=== PATIENT | male | born 1940 | race Caucasian/White ===

== ENCOUNTER → 2017-02-27 12:27 | Outpatient (CLI) | payer OTHER ==
[2015-05-14 08:36] VITALS: BMI 23.7
[~2017-02-27 12:27] MED LIST: COUMADIN5 MG PO; SYNTHROID50 MCG PO; ZYLOPRIM300 MG PO
== END | disposition home or self-care (01) ==
LOC: D.RAD 12:27
DX: R13.19 Other dysphagia (principal)

== ENCOUNTER 2018-01-01 09:07 | Emergency (ER) | payer OTHER ==
[~2018-01-01] VITALS: Ht 180.3 cm; Wt 77.3 kg
[2018-01-01 09:10] VITALS: Ht 180.3 cm; Wt 77.3 kg
[2018-01-01] MEDS ORDERED: COUMADIN3 MG PO (09:12)
[2018-01-01] MEDS ORDERED: COREG 3.1253.125 MG PO (09:13)
[2018-01-01 09:46] LABS: BASOPHILS 0.3 % (0-2); HEMOGLOBIN 15.6 g/dL (13.5-17.5); IMMATURE GRANULOCYTES 0.3 % (0-5); MCH 29.4 pg (26.0-34.0); MCHC 33.9 g/dL (31.0-37.0); MCV 86.8 fL (80.0-100.0); MEAN PLATELET VOLUME 12.7 fL (7.4-10.4); MONOCYTES 8.3 % (2-11); NEUTROPHILS 58.1 % (40-80); PLATELET COUNT 137 10x3/uL (130-400); RDW 15.4 % (11.5-14.5); WBC 6.5 10x3/uL (4.8-10.8)
[2018-01-01 10:02] LABS: ALBUMIN 3.5 g/dL (3.4-5.0); ALKALINE PHOSPHATASE 75 U/L (46-116); ALT (SGPT) 35 U/L (10-68); CALC OSMOLALITY 281 mosm/kg (275-300); CALCIUM 8.8 mg/dL (8.5-10.1); CARBON DIOXIDE 28.4 mmol/L (21.0-32.0); CHLORIDE - SERUM 106 mmol/L (98-107); CREATININE - SERUM 1.4 mg/dL (0.6-1.3); GLUCOSE 104 mg/dL (74-106); POTASSIUM - SERUM 4.2 mmol/L (3.5-5.1); PROTEIN - SERUM 7.2 g/dL (6.4-8.2); SODIUM 140 mmol/L (136-145); UREA NITROGEN 21 mg/dL (7-18); eGFR NON AFRICAN AMERICAN 52 mL/min (90-120)
[2018-01-01 10:15] LABS: CKMB 4.5 U/L (0.0-3.6); PRO BNP 1757 pg/mL (0-450); THYROID STIMULATING HORMONE 3.45 uIU/mL (0.36-3.74); TROPONIN-I < 0.017 ng/mL (0.000-0.060)
[2018-01-01 12:17] VITALS: BP 158/94
== END 2018-01-01 12:19 | disposition home or self-care (01) ==
LOC: D.ER 09:07
PROVIDERS: Family Medicine
DX: R42 Dizziness and giddiness (principal)

== ENCOUNTER → 2018-09-17 14:12 | Outpatient (CLI) | payer OTHER, MEDICARE ==
[2018-01-01 09:10] VITALS: BMI 23.7
[~2018-09-17 14:12] MED LIST changes: +COREG 3.1253.125 MG PO; +COUMADIN3 MG PO
== END | disposition home or self-care (01) ==
LOC: D.US 14:12
PROVIDERS: ATTEND Internal Medicine Cardiovascular Disease
DX: G45.9 Transient cerebral ischemic attack, unspecified (principal); H54.7 Unspecified visual loss

== ENCOUNTER → 2019-07-30 13:40 | Outpatient (CLI) | payer OTHER, MEDICARE ==
[2018-01-01 09:10] VITALS: BMI 23.7
== END | disposition home or self-care (01) ==
LOC: D.HCCECHO 13:40
PROVIDERS: ATTEND Internal Medicine Cardiovascular Disease
DX: I25.10 Atherosclerotic heart disease of native coronary artery without angina pectoris (principal)

== ENCOUNTER → 2020-09-15 07:57 | Outpatient (CLI) | payer OTHER ==
[2018-01-01 09:10] VITALS: BMI 23.7
--- NOTE | ~2020-09-15 | ST ---
PATIENT:VICKI HAN MEDICAL RECORD: [id number] SEX: M LOCATION:[facility] ORDER #: ADMISSION DATE: 09/15/20 AGE OF PATIENT: 80 REFERRING PHYSICIAN: INTERPRETING PHYSICIAN: REYES CRUZ MD DATE OF SERVICE: 09/15/2020 NUCLEAR STRESS TEST Gated: Gated is normal with normal wall motion, normal wall thickening, calculated EF 57%. SPECT imaging: SPECT imaging was performed. FINDINGS: Short axis view: Short axis views shows reversible defect extending from the inferior base down to the mid inferior wall. This is confirmed in the horizontal axis with reversible defect from the inferior base down to the mid inferior wall. Vertical axis: Vertical axis shows good uptake along the lateral wall and septum. FINAL IMPRESSION: 1. Normal gated. Normal wall motion, EF 57%. 2. Abnormal SPECT imaging with a reversible defect along the inferior base extending from the inferior wall. Seen in 2 views. This gentleman with previous history of coronary artery disease. The scan is worrisome for progression of [place] disease. Consider angiography to further delineate anatomy. TRANSINT:[id number] Voice Confirmation ID: [id number] DOCUMENT ID: [id number] REYES CRUZ MD CC: [id number] DICTATION DATE: 09/16/20 0803 SHAKER PLATE OPERATOR: 09/17/20 0051 DEP CLI 09/15/20 [address] [place] [address]
== END | disposition home or self-care (01) ==
LOC: D.HCCARDIO 09-11 08:30
PROVIDERS: ATTEND Internal Medicine Interventional Cardiology
DX: I25.10 Atherosclerotic heart disease of native coronary artery without angina pectoris (principal)

== ENCOUNTER 2020-12-03 06:54 | Day surgery (SDC) | payer OTHER ==
[~2020-12-03] VITALS: Ht 180.3 cm; Wt 81.5 kg
--- NOTE | ~2020-12-03 | HEMODYNAMI ---
PATIENT:VICKI HAN MEDICAL RECORD: [id number] : 40 LOCATION:[facility] ADMISSION DATE: 12/03/20 Generatedon:19:31 Patient name: VICKI HNA Patient #: [id number] SSN: : 1 07/24/1939 Date of study: 12/03/2020 Page: Of Hemodynamic Procedure Report Patient Data Patient Demographics Procedure consent was obtained First Name: VICKI Gender: Male Last Name: GUILLE : 1940 [facility] Initial: JETT Age: 80 year(s) Patient #: [id number] Race: Additional ID: [id number] Contact details Address: [address] [place] [address] State: [place] City: [place] Zip code: [address] Past Medical History Allergies: No known allergies Admission Admission Data Admission Date: 12/03/2020 Admission Time: 6:54 Arrival Date: 12/03/2020 Arrival Time: 0:00 Admit Source: Other Insurance Payor: Private health insurance [facility] #: [id number] Lab Results Lab Result Date: 12/03/2020 Lab Result Time: 0:00 Biochemistry Name Units Result Min Max BUN mg/dl 28 --(----)-* 7 18 Creatinine mg/dl 1.4 --(----)*- 0.6 1.3 CBC Name Units Result Min Max Hematocrit % 45 --(*---)-- 42 54 Hemoglobin g/dl 14.9 --(-*--)-- 13.5 17.5 Procedure Procedure Types Cath Procedure Diagnostic Procedure C LH w/Coronaries Sedation Charges Moderate Sedation 10-24 minutes Procedure Description Procedure Date Procedure Date: 12/03/2020 Procedure Start Time: 9:03 Procedure End Time: 9:28 Procedure Staff Name Function Ryan Loja MD Performing Physician Rui Dougherty RN Nurse Prateek Villarreal RN Nurse Keira Horan RT Monitor Jeannette Lopez RT Scrub Procedure Data Cath Procedure Fluoroscopy Diagnostic fluoroscopy Total fluoroscopy Time: 4.8 time: 4.8 min min Diagnostic fluoroscopy Total fluoroscopy dose: 832 dose: 832 mGy mGy Contrast Material Contrast Material Type Amount (ml) Isovue 300 109 Entry Location Entry Primary Successful Side Size Upsize Upsize Entry Closure Savage ccessful Closure Location (Fr) 1 (Fr) 2 (Fr) Remarks Device Remarks Radial Right 6 Fr Mechanical artery Short Compression Femoral Right 5 Fr Exoseal artery Estimated blood loss: 5 ml Diagnostic catheters Device Type Used For End Catheter Placement DIAGNOSTIC [place] 110cm 5 Multi-vessel Fr catheter ([id number]) Angiography DIAGNOSTIC AL1 5Fr Right Coronary catheter ([id number]) Angiography Procedure Complications No complications Procedure Medications Medication Administration Route Dosage 0.9% NaCl I.V. 100 ml/hr Oxygen etCO2 Nasal cannula 2 l/min Heparin Flush Bag added to field 2 bags (1000units/500ml NS) Lidocaine 2% added to field 20 Radial Cocktail added to field 1 syringe (Verapamil 2mg/Nitro 400mcg/Heparin 1500units) Versed I.V. 1 mg Fentanyl I.V. 50 mcg Versed I.V. 0.5 mg Hemodynamics Rest HGB: 14.9 (g/dl) Heart Rate: 56 (bpm) Pressure Samples Time Site Value (mmHg) Purpose Heart Use Rate(bpm) 9:22 LV 149/11,18 Snapshot 76 Gradients Valve Time Site Site Mean SEP/DFP Peak To Heart Use 1 2 (mmHg) (sec/min) Peak Rate (mmHg) (bpm) Aortic 9:23 LV AO 59 Snapshots Pre Cath Intra NCS Post Cath Vital Signs Time Heart Resp SPO2 etCO2 NIBP (mmHg) Rhythm Pain Sedation Rate (ipm) (%) (mmHg) Status Level (bpm) 8:56:39 65 11 100 0.7 183/96(157) NSR 0 (11) 10(A) , No pain 9:01:04 55 12 94 0.7 165/83(142) SB 0 (11) 10(A) , No pain 9:05:28 54 12 95 0 173/89(153) SB 0 (11) 9(A) , No pain 9:09:46 52 12 98 0.7 133/73(93) SB 0 (11) 9(A) , No pain 9:13:56 51 12 96 1.5 134/74(106) SB 0 (11) 9(A) , No pain 9:18:14 80 12 97 1.5 136/71(115) NSR 0 (11) 9(A) , No pain 9:22:32 77 13 94 0.7 141/75(112) NSR 0 (11) 9(A) , No pain 9:26:52 73 12 98 1.5 145/75(111) NSR 0 (11) 10(A) , No pain Medications Time Medication Route Dose Verified Delivered Reason Notes Ef fectiveness by by 8:42:34 0.9% NaCl I.V. 100 Ryan Prateek used for ml/hr Freedom Villarreal manufacturing engineering intern 8:42:42 Oxygen etCO2 2 l/min Ryan Prateek used for Nasal Freedom Villarreal manufacturing engineering intern cannula 8:42:49 Heparin Flush added 2 bags Ryan Prateek used for Bag to Freedom Villarreal manufacturing engineering intern (1000units/500ml field NS) 8:43:05 Lidocaine 2% added 20ml Ryan Prateek for local to vial Freedom Villarreal RN anesthetic field 8:54:32 Radial Cocktail added 1 Ryan Prateek used for (Verapamil to syringe Freedom Villarreal manufacturing engineering intern 2mg/Nitro field 400mcg/Heparin 1500units) 9:01:13 Versed I.V. 1 mg Ryan Prateek for Freedom Villarreal RN sedation 9:01:19 Fentanyl I.V. 50 mcg Ryan Prateek for Freedom Villarreal RN sedation 9:09:34 Versed I.V. 0.5 mg Ryan Prateek for Freedom Villarreal RN sedation Procedure Log Time Note 8:08:59 Informed consent obtained and on chart 8::08 Diagnostic Cath Status : Elective 8::28 Admit Source: Other 8::31 ACC Patient presents with Stable Angina CCS Anginal Class 2--Slight limitation of ordinary activity. 8:17:24 Procedure Status Elective Heart Cath (OP). 8:17:26 Time tracking: Regular hours (M-F 7:00 - 5:00) 8:17:31 Plan of Care:Hemodynamics will remain stable., Cardiac rhythm will remain stable., Comfort level will be maintained., Respiratory function will remain adequate., Patient/ family verbilizes understanding of procedure., Procedure tolerated without complication., Recovers from procedure without complications.. 8:17:44 Arrival Date: 12/03/2020 12:00:00 AM 8:17:48 Insurance Payor : Private health insurance 8:19:27 H&P Date Dictated: 12/03/2020 Within 30 days and on chart.. 8:21:53 Prateek Villarreal RN sent for patient. Start room use. 8:36:04 Lab Result : Hemoglobin 14.9 g/dl 8:36:04 Lab Result : Hematocrit 45 % 8:36:17 Procedure delayed due to: WAITING ON LAB PT/INR 8:42:21 Lab Result : Creatinine 1.4 mg/dl 8:42:21 Lab Result : BUN 28 mg/dl 8:42:34 0.9% NaCl 100 ml/hr I.V. was administered by Prateek Villarreal RN; used for procedure; Verbal order read back and verified. 8:42:42 Oxygen 2 l/min etCO2 Nasal cannula was administered by Prateek Villarreal RN; used for procedure; Verbal order read back and verified. 8:42:49 Heparin Flush Bag (1000units/500ml NS) 2 bags added to field was administered by Prateek Villarreal RN; used for procedure; Verbal order read back and verified. 8:43:05 Lidocaine 2% 20ml vial added to field was administered by Prateek Villarreal RN; for local anesthetic; Verbal order read back and verified. 8:46:23 Patient received from Pre/Post Procedure Room to CCL 1 Alert and oriented. Tansferred to table in Supine position. 8:46:24 Warm blankets applied, and jorge hugger turned on for patient comfort. 8:46:24 Correct patient and procedure confirmed by team. 8:46:25 ECG and BP/O2 sat monitors applied to patient. 8:54:18 Vital chart was started 8:54:32 Radial Cocktail (Verapamil 2mg/Nitro 400mcg/Heparin 1500units) 1 syringe added to field was administered by Prateek Villarreal RN; used for procedure; Verbal order read back and verified. 8:57:32 Baseline sample Acquired. 8:58:02 Rhythm: sinus rhythm 8:58:05 Full Disclosure recording started 8:58:10 Pre-procedure instructions explained to patient. 8:58:10 Pre-op teaching completed and patient verbalized understanding. 8:58:14 Family in patients room. 8:58:16 Patient NPO since Midnight. 8:58:18 Is the patient allergic to Iodine/contrast media? No. 8:58:19 Was the patient premedicated? Yes 8:58:48 Is patient on blood thinner?Yes 8:59:51 PATIENT STATES LAST DOSE OF COUMADIN ON 11/28/20 8:59:55 Patient diabetic? No. 8:59:57 Previous problem with sedation/anesthesia? No ? 9:00:00 Snore? Yes 9:00:01 Sleep apnea? No 9:00:02 Deviated septum? No 9:00:02 Opens mouth fully? Yes 9:00:03 Sticks out tongue? Yes 9:00:07 Airway obstruction? No ? 9:00:12 Dentures? Yes OUT 9:00:18 Pre procedure: right dorsailis pedis pulse 1+ Palpable, but thready & weak; easily obliterated 9:00:20 Pre procedure: left dorsailis pedis pulse 1+ Palpable, but thready & weak; easily obliterated 9:00:22 Patient pain scale 0/10 ?. 9:00:24 Modified Enrico's test Radial < 7 seconds 9:00:30 IV patent on arrival in left forearm with 0.9% NaCl at O. 9:00:34 Lab results completed and on chart. 9:00:44 Right Radial & Right Groin area was prepped with chlora-prep and draped in sterile fashion 9:00:45 Alarms reviewed by R. N. 9:00:45 Sharps counted by scrub and verified by R.N. 9:00:47 Physician arrived 9:00:47 --------ALL STOP TIME OUT------ 9:00:48 Final Timeout: patient, procedure, and site verified with staff and physician. All members of the team are in agreement. 9:00:51 Right Radial & Right Groin site verified by team. 9:00:54 Fire Safety Assessment: A--An alcohol-based skin anteseptic being used preoperatively., C--Open oxygen or nitrous oxide is being used., D--An ESU, laser, or fiber-optic light is being used. 9:00:58 Physical assessment completed. ASA score P 2 - A patient with mild systemic disease as per Ryan Loja MD. 9:01:04 3a) 45-59 Moderately reduced kidney function. 9:01:09 Maximum allowable contrast dose (3.7 X eGFR X 0.75)144 ml. 9:01:13 Versed 1 mg I.V. was administered by Prateek Villarreal RN; for sedation; Verbal order read back and verified. 9:01:17 Sedation plan: IV Moderate Sedation Medication:Versed, Fentanyl 9:01:19 Fentanyl 50 mcg I.V. was administered by Prateek Villarreal RN; for sedation; Verbal order read back and verified. 9:03:07 Use device set Radial Dx or PCI 9:03:09 ACIST Syringe (90815) opened to sterile field. 9:03:10 Medline Cath Pack ([id number]) opened to sterile field. 9:03:10 Bag Decanter (2002S) opened to sterile field. 9:03:10 ACIST Hand Control (46272) opened to sterile field. 9:03:11 ACIST Manifold (17529) opened to sterile field. 9:03:11 Tegaderm 4 x 4 (1626W) opened to sterile field. 9:03:12 MBrace Wrist Support ([id number]) opened to sterile field. 9:03:16 NEEDLE Cook 21G 4cm Radial (F19744) opened to sterile field. 9:03:17 SHEATH 6FR RAIN (8066582) opened to sterile field. 9:03:18 EMERALD Guide Wire (195-094) opened to sterile field. 9:03:29 Procedure started. 9:03:34 Local anesthetic to right radial artery with Lidocaine 2% by Ryan Loja MD.INITIAL ACCESS ONLY 9:05:37 Zero performed for pressure channel P1 9:06:35 A 6 Fr Short sheath was inserted into the Right Radial artery 9:07:43 A DIAGNOSTIC [place] 110cm 5 Fr catheter (903833) was advanced over the wire and used for Multi-vessel Angiography. 9:09:26 GLIDE WIRE ANGLE 260cm (ZL0262) opened to sterile field. 9:09:34 Versed 0.5 mg I.V. was administered by Prateek Villarreal RN; for sedation; Verbal order read back and verified. 9:10:46 unable to gain access through radial; preparing for femoral access 9:11:17 Local anesthetic to right femoral artery with Lidocaine 2% by Ryan Loja MD.ADDITIONAL ACCESS 9:11:53 SHEATH 5FR [place] (GYA969) opened to sterile field. 9:11:59 DIAGNOSTIC Multipack 5Fr catheter set ([id number]) opened to sterile field. 9:12:43 A 5 Fr sheath was inserted into the Right Femoral artery 9:12:54 5 Fr jl 4 guide catheter was inserted over the wire 9:13:41 LCA angiography performed. 9:13:44 Injector settings: Ml/sec: 3, Volume: 6, 9:15:53 Catheter removed. 9:16:36 5 Fr 3drc guide catheter was inserted over the wire 9:18:28 RCA angiography performed. 9:18:32 Injector settings: Ml/sec: 3, Volume: 6, 9:19:40 A DIAGNOSTIC AL1 5Fr catheter ([id number]) was advanced over the wire and used for Right Coronary Angiography. 9:20:02 RCA angiography performed. 9:20:05 Injector settings: Ml/sec: 3, Volume: +6, 9:21:14 Catheter removed. 9:22:22 5 Fr pigtail guide catheter was inserted over the wire 9:22:50 LV hemodynamics recorded. 9:22:51 LV gram done using MCFADDEN 9:22:54 Injector settings: Ml/sec: 5, Volume: 15, 9:23:04 EF : 45 % 9:23:53 Catheter removed. 9:24:04 ZEPHYR REGULAR TR BAND (365911) opened to sterile field. 9:24:10 EXOSEAL 5Fr (EX500) opened to sterile field. 9:25:01 Sheath removed intact; hemostasis achieved with Mechanical Compression to the Right Radial artery. 9:25:12 Sheath removed intact; hemostasis achieved with Exoseal to the Right Femoral artery. 9:25:14 Procedure ended.(Physican Out) 9:25:25 Fluoroscopy time 04.80 minutes. 9:25:30 Fluoroscopy dose: 832 mGy 9:25:30 Flurop Dose total: 832 9:25:42 Dose Area Product 53080 mGy/cm. 9:25:45 Contrast amount:Isovue 300 109ml. 9:26:20 Maximum allowable dose exceeded? No. 9:26:21 Sharps counted by scrub and verified by R.N. 9:26:24 [place] band inflated with 10cc of air. 9:26:26 Insertion/operative site no bleeding no hematoma. 9:26:29 Post-op/insertion site Right Femoral artery dressed using a 4 x 4 and Tegaderm. 9:26:31 Post right femoral artery:stable 9:26:33 Post Procedure Pulses reassessed and unchanged 9:26:37 Post procedure rhythm: unchanged. 9:26:39 Estimated blood loss: 5 ml 9:26:41 Post procedure instruction explained to patient.Patient verbalizes understanding. 9:26:42 Patient needs reinforcement of post procedure teaching. 9:27:17 Procedure type changed to Cath procedure, Diagnostic procedure, LHC, [facility] w/Coronaries, Sedation Charges, Moderate Sedation 10-24 minutes 9:27:26 Procedure and supply charges have been captured, reviewed, submitted and are correct. 9:27:35 Procedure Complication : No complications 9:27:37 Vital chart was stopped 9:27:40 [facility] Findings: MVD- CABG consult 9:27:42 Operative report dictated upon procedure completion. 9:27:42 See physician's report for complete and final results. 9:27:55 Report given to Pre/Post Procedure Room. 9:27:59 Patient transfered to Pre/Post Procedure Room with Stretcher. 9:28:01 Procedure ended. 9:28:01 Full Disclosure recording stopped 9:28:05 End room use (Document Last) 9:29:24 End room use (Document Last) 9:30:51 End room use (Document Last) Device Usage Item Name Manufacture Quantity Catalog Hospital Part Current Minima l Lot# / Number Charge Number Stock Stock Serial# Code ACIST Acist 1 85653 [id number] 485150 [id number] 20 Syringe Medical (51792) Systems Inc Medline Medline 1 [id number] 770969 03828 836219 5 Cath Pack ([id number]) Bag Microtek 1 744480 09833 198215 5 Decanter Medical Inc. () ACIST Hand Acist 1 20726 387884 129682 455156 5 Control Medical (97363) Systems Inc ACIST Acist 1 57246 468214 250592 745964 5 Manifold Medical (29053) Systems Inc Tegaderm 4 3M 1 1626W 156479 340671 485675 5 x 4 (1626W) MBrace Advanced 1 140-0250-00 081205 46990 409747 5 Wrist Vascular Support Dynamics ([id number]) NEEDLE Cook Cook Medical 1 H48227 112517 661090 060734 5 21G 4cm Radial (U68176) SHEATH 6FR Cardinal 1 5390123 452024 8970888 609780 5 [facility] Health (1500384) EMERALD Cardinal 1 502-455 640485 391988 139577 5 Guide Wire Health (502455) DIAGNOSTIC Terumo 1 40-5013 618922 871563 624909 5 [place] 110cm 5 Fr catheter (081045) GLIDE WIRE Terumo 1 [id number] 442965 909004 865642 5 ANGLE 260cm (QJ6155) SHEATH 5FR Terumo 1 HYQ430 833792 018692 156317 5 [place] (SDL710) DIAGNOSTIC Cardinal 1 TE0653 464019 34922 733910 30 Multipack Health 5Fr catheter set (KP4624) DIAGNOSTIC Cardinal 1 [id number] 495922 285526 285693 15 AL1 5Fr Health catheter (556083Q) ZEPHYR Cardinal 1 124986 924792 7588895 055243 5 REGULAR TR Health BAND (646854) EXOSEAL 5Fr Cardinal 1 EX500 663909 935046 915849 10 (EX500) Health Signature Audit [place] Stage Time Signature Unsigned Intra-Procedure 12/03/2020 Keira Horan 9:29:24 AM RT(R) Intra-Procedure 12/03/2020 Prateek Villarreal RN 9:30:51 AM Intra-Procedure 12/03/2020 Ryan Loja MD 9:31:10 AM [facility] [address] [place] [address]
[2020-12-03] MEDS ORDERED: BETAPACE 80 MG80 MG PO (07:58)
[2020-12-03] MEDS ORDERED: LISINOPRIL10 MG PO (07:58)
[2020-12-03 08:16] VITALS: BP 173/86; Ht 180.3 cm; Wt 81.5 kg
[2020-12-03 08:19] LABS: EOSINOPHILS 2.6 % (0-7); HEMOGLOBIN 14.9 g/dL (13.5-17.5); LYMPHOCYTES 27.7 % (15-50); MCH 30.3 pg (26.0-34.0); MCHC 33.1 g/dL (31.0-37.0); MCV 91.5 fL (80.0-100.0); MEAN PLATELET VOLUME 10.3 fL (7.4-10.4); MONOCYTES 8.4 % (2-11); NEUTROPHILS 60.3 % (40-80); PLATELET COUNT 144 10x3/uL (130-400); RBC 4.92 10x6/uL (4.20-6.10); RDW 14.9 % (11.5-14.5); WBC 7.3 10x3/uL (4.8-10.8)
[2020-12-03 08:37] LABS: CALCIUM 9.5 mg/dL (8.5-10.1); CARBON DIOXIDE 27.2 mmol/L (21.0-32.0); CHOL - HDL RATIO 4.3 ratio (2.3-4.9); CREATININE - SERUM 1.4 mg/dL (0.6-1.3); LDL-HDL RATIO 2.7 ratio (1.5-3.5); POTASSIUM - SERUM 4.2 mmol/L (3.5-5.1)
[2020-12-03 08:40] LABS: INR 1.14 (0.85-1.17); PROTIME 13.5 SECONDS (11.6-15.0)
--- NOTE | 2020-12-03 09:41 | NUR ---
PT REC'D TO CATH RECOVERY ROOM 9 VIA STRETCHER. MONITORS ESTAB. SEE ELASTIC ATTACHER OVERLOCK FLOWSHEETS. ALARMS ON AND C/L IN REACH.
--- NOTE | 2020-12-03 09:55 | NUR ---
R GROIN EXOSEAL SITE AND R Z RADIAL Z BAND SITE C/D/I. NO S/S BLEEDING OR HEMATOMA AT EITHER SITE. PULSES ALL PALP. DAUGHTER AT BS. PT TOLERATED A FEW SIPS OF WATER. VSS. ALARMS ON AND C/L IN REACH.
--- NOTE | 2020-12-03 10:25 | NUR ---
PT RESTING QUIETLY. VSS. R GROIN SITE AND R WRIST Z BAND SITE C/D/I, NO S/S BLEEDING OR HEMATOMA AT EITHER SITE. ALARMS ON AND C/L IN REACH.
--- NOTE | 2020-12-03 10:40 | NUR ---
R GROIN EXOSEAL SITE SOFT, NO S/S BLEEDING OR HEMATOMA. R WRIST Z BAND SITE C/D/I, NO S/S BLEEDING OR HEMATOMA. PULSES PALP. CM - SB, NO ECTOPY NOTED. DAUGHTER AT BS. ALARMS ON AND C/L IN REACH.
--- NOTE | 2020-12-03 11:00 | NUR ---
DR. ELIAS IN TO SEE PT AND DAUGHTER...SPOKE WITH THEM RE: HEART CATH RESULTS AND CONSULT WITH DR CADE. VSS. R GROIN AND R WRIST Z BAND SITES C/D/I, NO S/S BLEEDING OR HEMATOMA. C/L IN REACH.
--- NOTE | 2020-12-03 11:38 | NUR ---
R GROIN SITE SOFT, NO S/S BLEEDING. HOB ELEVATED. 3CC AIR REMOVED FROM Z BAND, NO S/S BLEEDING. PT INSTRUCTED ON S/S TO REPORT TO NURSE. ALL PULSES PALP. SANDWICH TRAY AND COLA PROVIDED, DAUGHTER ASSISTING PT. ALARMS ON AND C/L IN REACH.
--- NOTE | 2020-12-03 12:00 | NUR ---
TOTAL 7CC AIR REMOVED FROM Z BAND, NO S/S BLEEDING. PT ATE ALL OF SANDWICH, DENIES PAIN OR NEEDS. ALARMS ON AND C/L IN REACH.
--- NOTE | 2020-12-03 12:15 | NUR ---
ALL AIR REMOVED FROM Z BAND, NO S/S BLEEDING OR SWELLING. R GROIN SITE SOFT, NO S/S BLEEDING OR HEMATOMA. PULSES PALP. PT DENIES PAIN OR NEEDS. WAITING FOR DR CADE TO COME AND TALK WITH THEM.
--- NOTE | 2020-12-03 12:37 | NUR ---
R GROIN EXOSEAL SITE SOFT, NO S/S BLEEDING OR HEMATOMA. Z BAND REMOVED, NO S/S BLEEDING OR SWELLING - DSG APPLIED. PULSES PALP. PIV D/C'D INTACT, DSG APPLIED. PT ALLOWED TO GET UP TO GET DRESSED, BUT REQUESTED TO STAY IN BED AND REST HIS EYES A LITTLE LONGER WHILE HE WAITS FOR DR. CADE. C/L IN REACH.
--- NOTE | 2020-12-03 12:44 | NUR ---
I SPOKE WITH DR CADE'S NURSE, ALEENA, SHE SAID OK TO D/C PT HOME AND THEY WILL CALL WITH AN APPT FOR PT TO COME TO OFFICE. PT AND DAUGHTER NOTIFIED. PT UP TO GET DRESSED AND GO TO BR INDEPENDENTLY, PT REPORTS "IM READY TO GO HOME" B/P WITHIN BASELING PARAMETERS.
--- NOTE | 2020-12-03 13:06 | NUR ---
ALL DISCHARGE INSTRUCTIONS REVIEWED WITH PT AND HIS DAUGHTER, INCLUDING RESTRICTIONS, MEDS AND GIVEN BOOKLET WITH PHONE NUMBER FOR DR. CADE'S OFFICE. BOTH VERBALIZE UNDERSTANDING.
--- NOTE | 2020-12-03 13:10 | NUR ---
R WRIST DSG C/D/I, ARM BOARD IN PLACE. R GROIN SITE SOFT, C/D/I. PT D/C'D VIA WC TO PRIVATE VEHICLE WITH ALL PAPERWORK AND BELONGINGS.
== END 2020-12-03 13:10 | disposition home or self-care (01) ==
LOC: D.CATH 06:54
PROVIDERS: ATTEND Internal Medicine Cardiovascular Disease
DX: I25.118 Atherosclerotic heart disease of native coronary artery with other forms of angina pectoris (principal); R94.39 Abnormal result of other cardiovascular function study; I48.91 Unspecified atrial fibrillation